=== PATIENT | female | born 1965 | race African-American/Black ===

== ENCOUNTER → 2024-03-26 | Day surgery (SDC) | payer BC ==
[~2024-03-26] MED LIST: CRESTOR40 MG PO; CYMBALTA30 MG PO; FAMOTIDINE20 MG PO; GLIMEPIRIDE2 MG PO; LEVOTHYROXINE50 MCG PO; LEVOTHYROXINE88 MCG PO; LIDOCAINE HCL 2% LOCAL INJ 5 ML SDV VIAL INJ ONE; LISINOPRIL10 MG PO; METFORMIN HCL500 MG PO; METOCLOPRAMIDE HCL 10 MG/2ML VIAL ONE; NASOCORT; PROPOFOL IV EMULSION 10 MG/ML 20 ML VIAL ONE; PROTONIX20 MG PO; TERBINAFINE HC250 MG PO
[2024-03-26] MEDS: LACTATED RINGER'S 1,000 ML ONE (07:12)
[2024-03-26 09:25] VITALS: TEMP 97
[2024-03-26 09:55] VITALS: BP 129/78; PULSE 79; RESP 15; O2SAT 98
[2024-03-29 08:12] LABS: ENDOMYSIAL ANTIBODIES, IGA Negative (Negative)
[2024-03-29 10:16] LABS: IMMUNOGLOBULIN A 220 mg/dL (87-352); TISSUE TRANSGLUTAMINASE IGA AB <2 U/mL (0-3)
== END | disposition home or self-care (01) ==
LOC: ENDO 06:26
PROVIDERS: ATTEND Internal Medicine Gastroenterology
DX: K20.90 Esophagitis, unspecified without bleeding (principal); K31.7 Polyp of stomach and duodenum; K29.70 Gastritis, unspecified, without bleeding; K31.89 Other diseases of stomach and duodenum; K21.9 Gastro-esophageal reflux disease without esophagitis; R49.9 Unspecified voice and resonance disorder; I10 Essential (primary) hypertension; E78.5 Hyperlipidemia, unspecified; E11.9 Type 2 diabetes mellitus without complications; E03.9 Hypothyroidism, unspecified; Z01.810 Encounter for preprocedural cardiovascular examination; Z79.84 Long term (current) use of oral hypoglycemic drugs; Z79.899 Other long term (current) drug therapy
CPT/HCPCS: 43239; 43450; 82784; 83516; 86256; 93005; J2003; J2470; J2765